=== PATIENT | female | born 1935 | race Caucasian/White ===

== ENCOUNTER 2019-01-06 14:19 | Emergency (ER) | payer BC, MEDICARE ==
[2019-01-06] MEDS: ACETAMINOPHEN 325 MG TAB PO ×2 (14:53→17:48)
[2019-01-06] MEDS: NICARDipine HCL 30 MG CAPSULE PO (16:27)
[2019-01-06] MEDS ORDERED: ACETAMINOPHEN 325 MG TAB PO (18:00)
== END 2019-01-06 19:15 | disposition home or self-care (01) ==
LOC: E/R 19:15
DX: I16.0 Hypertensive urgency (principal); I10 Essential (primary) hypertension; Z79.84 Long term (current) use of oral hypoglycemic drugs
CPT/HCPCS: 70450; 99284-25